=== PATIENT | male | born 1980 | race Caucasian/White ===

== ENCOUNTER 2025-03-04 15:53 | Outpatient (REF) | payer OTHER, MEDICAID, SELFPAY ==
--- OUTSIDE RECORDS SUMMARY | 2025-03-04 15:00 | XMS_ITS | Encounter Summary ---
Author Organization [employer] Address [address] [place] [address] Care Team Providers Care Hazardous Waste Management Specialist Name Role Phone Unavailable Primary Care Provider Unavailabl e Reason for Visit * Reason Comments UTI Encounter Details Date Type Department Care Team (Late st Contact Info) Description 03/04/2025 3:00 PM EST Office Visit [facility] [address] [place] [address] Weight loss (Primary Dx); UTI symptoms; Dietary counseling; Exercise counseling; Overweight; Type 2 diabetes mellitus without complication, without long-term current use of insulin (HCC) Social History Tobacco Use Types Packs/Day Years Used Date Smoking Tobacco: Never Passive Smoke Exposure: Never Smokeless Tobacco: Never Tobacco Cessation:Counseling Given: Not Answered Sex and Gender Information Value Date Recorded Sex Assigned at Male 03/04/2025 2:25 PM EST Legal Sex Male 1:50 PM EST Gender Identity Male 03/04/2025 2:25 PM EST Sexual Orientation Straight 03/04/2025 2: 25 PM EST documented as of this encounter Last Filed Vital Signs Vital Sign Reading Time Taken Comments Blood Pressure 117/77 03/04/2025 3:19 PM EST Pulse 86 03/04/2025 3:19 PM EST Temperature 36.7 C (98.1 F) 03/04/2025 3:19 PM EST Respiratory Rate 16 03/04/2025 3:19 PM EST Oxygen Saturation 100% 03/04/2025 3:19 PM EST Inhaled Oxygen Concentration - - Weight 68 kg (150 lb) 03/04/2025 3:19 PM EST Height 162.6 cm (5' 4 ) 03/04/2025 3:19 PM EST Body Mass Index 25.75 03/04/2025 3:19 PM EST documented in this encounter Plan of Treatment Upcoming Encounters Date Type Department Care Team (Late st Contact Info) Description 04/25/2025 9:30 AM EST Office Visit [facility] [address] [place] [address] Dyana Ware MD [address] [place] [address] Scheduled Orders Name Type Priority Associated Diagnoses Orde r Schedule Hepatitis C Antibody with Reflex to HCV, RNA, Quantitative, Real-Time PCR Lab Routine Weight loss Expected: 03/04/2025, Expires: 03/04/2026 HIV-1/2 Antigen and Antibodies, Fourth Generation, with Reflexes Lab Routine Weight loss Expected: 03/04/2025 (Approximate), Expires: 03/04/2026 RPR (Monitor) with Reflex to Titer Lab Routine Weight loss Expected: 03/04/2025, Expires: 03/04/2026 Hemoglobin A1c Lab Routine Weight loss Expected: 03/04/2025 (Approximate), Expires: 03/04/2026 documented as of this encounter Goals Goal Patient Goal Type Associated Problems Recent Progress Patient-Stated? Author Help patients manage their type 2 diabetes Care Plan Help patients manage their type 2 diabetes Layne Garcia MD Patient has chronic kidney disease Care Plan Patient has chronic kidney disease Layne Garcia MD documented as of this encounter Procedures Procedure Name Priority Date/Time Associated Diagnosis Comments POCT URINALYSIS DIPSTICK Routine 03/04/2025 4:02 PM EST UTI symptoms CBC WITH AUTO DIFFERENTIAL Routine 03/04/2025 4:00 PM EST Weight loss SED RATE BY MODIFIED WESTERGREN Routine 03/04/2025 4:00 PM EST Weight loss C-REACTIVE PROTEIN Routine 03/04/2025 4: 00 PM EST Weight loss LD Routine 03/04/2025 4:00 PM EST Weight loss COMPREHENSIVE METABOLIC PANEL Routine 03/04/2025 4:00 PM EST Weight loss documented in this encounter Results * (ABNORMAL) POCT urinalysis dipstick manually resulted (CPT 39827) (03/04/2025 4:02 PM EST) Color, UA Yellow Clarity, UA Clear Glucose, UA 3+ 500+++ Comment:500mg Bilirubin, UA Negative Ketones, UA Positive Comment:160mg Spec Grav, UA 1.015 Blood, UA Positive(A) Negative, None Detected Comment:trace pH, UA 5.5 Protein, UA Negative Urobilinogen, UA 0.2 Leukocytes, UA Negative Negative, Rare, Trace, 1+ (17), 2+ (35), 3+ (70), Trace (15) Nitrite, UA Negative Negative, None Detected Appearance, UA Ok Urine (Urine, Random) 03/04/2025 4:02 PM EST Layne Langston MD POINT OF CARE TEST ENTER/EDIT ORDERABLES Final Result * Lactate Dehydrogenase (LD) (03/04/2025 4:00 PM EST) Lactate Dehydrogenase 148 118 - 273 U/L [facility] Blood Venous blood specimen / Unknown 03/04/2025 4:00 PM EST 03/04/2025 6:19 PM EST Layne Langston MD LAB BLOOD ORDERABLES Final Res ult Performing Organization Address [facility] Co de Phone Number [facility] [address] [place] [address] [phone] * C-reactive Protein (03/04/2025 4:00 PM EST) C Reactive Protein <0.10 < or = 0.50 mg/dL [facility] Blood Venous blood specimen / Unknown 03/04/2025 4:00 PM EST 03/04/2025 6:19 PM EST Layne Langston MD LAB BLOOD ORDERABLES Final Res ult [facility] [address] [place] [address] [phone] * Sed Rate by Modified Westergren (03/04/2025 4:00 PM EST) Erythrocyte Sedimentation Rate 7 1 - 15 MM/HR [facility] Comment:Patients with polycy themia and many hemoglobin abnormalitiesmay have depressed sed rates whereas patients with anemiamay have elevated sed rates. Blood Venous blood specimen / Unknown 03/04/2025 4:00 PM EST 03/04/2025 6:19 PM EST us Layne Langston MD LAB BLOOD ORDERABLES Final Res ult [facility] [address] [place] [address] [phone] * (ABNORMAL) Comprehensive Metabolic Panel (03/04/2025 4:00 PM EST) Pathologist [facility] Sodium 134(L) 135 - 145 mmol/L [facility] Potassium 4.3 3.3 - 5.1 mmol/L [facility] Chloride 98 96 - 108 mmol/L [facility] Carbon Dioxide 23 22 - 29 mmol/L [facility] Anion Gap 17 12 - 20 [facility] Urea Nitrogen (BUN) 8(L) 9 - 16 mg/dL [facility] Creatinine, Serum 0.66 0.5 - 1.4 mg/dL [facility] Estimated Glomerular Filt Rate >60 [facility] Comment:Chronic Kidney Disea se: Estimated GFR < 60 mL/min/1.84x8Vxsisr Kidney Disease: Estimated GFR < 15 mL/min/1.73m2 Glucose 276(H) 60 - 115 mg/dL [facility] Calcium 9.4 8.4 - 10.2 mg/dL [facility] Bilirubin, Total 0.9 0.0 - 1.0 mg/dL [facility] Aspartate Amino Transferase 76(H) 5 - 37 U/L [facility] Alanine Aminotransferase 133(H) 0 - 40 U/L [facility] Total Protein 7.1 6.5 - 8.0 g/dL [facility] Albumin Level 4.6 3.5 - 5.0 g/dL [facility] Alkaline Phosphatase 146(H) 39 - 117 U/L [facility] Blood Venous blood specimen / Unknown 03/04/2025 4:00 PM EST 03/04/2025 6:19 PM EST us Layne Langston MD LAB BLOOD ORDERABLES Final Res ult [facility] [address] [place] [address] [phone] * (ABNORMAL) CBC auto differential (03/04/2025 4:00 PM EST) White Blood Count 4.9 4.8 - 10.8 X10*3/uL [facility] Red Blood Count 4.70 4.60 - 5.80 X10*6/uL [facility] Hemoglobin 14.7 14.0 - 18.0 g/dl [facility] Hematocrit 41.2(L) 42.0 - 52.0 % [facility] Mean Corpuscular Volume 87.7 80.0 - 98.0 fL [facility] Mean Corpuscular Hemoglobin 31.3 27.0 - 33.0 pg [facility] Mean Corpuscular HGB Conc 35.7 31.0 - 36.0 g/dl [facility] Red Cell Distribution Width 12.2 11.0 - 16.0 % [facility] Platelet Count 143(L) 160 - 400 X10*3/uL [facility] Mean Platelet Volume 11.3 9.4 - 12.4 fL [facility] Neutrophils Percent Auto 71.5 45 - 73 % [facility] Imm Gran Pct Auto 0.4 0.0 - 0.4 % [facility] Lymphocytes Percent Auto 20.6 20 - 40 % [facility] Monocytes Percent Auto 5.7 2 - 11 % [facility] Eosinophils Percent Auto 1.2 0 - 4 % [facility] Basophils Percent Auto 0.6 0 - 2 % [facility] NRBC Pct Auto 0.0 0.0 - 0.2 /100WBC [facility] Neutrophils Absolute Auto 3.5 2.0 - 8.3 x10*3/uL [facility] Imm Gran Abs Auto 0.02 0.00 - 0.03 X10*3/uL [facility] Lymphocytes Absolute Auto 1.0(L) 1.2 - 4.9 X10*3/uL [facility] Monocytes Absolute Auto 0.3 0.1 - 1.2 X10*3/uL [facility] Eosinophils Absolute Auto 0.1 0.0 - 0.4 X10*3/uL [facility] Basophils Absolute Auto 0.0 0.0 - 0.2 X10*3/uL [facility] NRBC Abs Auto 0.000 0.0 - 0.012 X10*3/uL [facility] Blood Venous blood specimen / Unknown 03/04/2025 4:00 PM EST 03/04/2025 6:19 PM EST us Layne Langston MD LAB BLOOD ORDERABLES Final Res ult [facility] [address] [place] [phone] documented in this encounter Visit Diagnoses Diagnosis Weight loss- Primary Loss of weight UTI symptoms Dietary counseling Dietary surveillance and counseling Exercise counseling Overweight Type 2 diabetes mellitus without complication, without long-term current use of insulin (HCC) documented in this encounter Additional Health Concerns Active Problems Noted Date Diagnosed Date Help patients manage their type 2 diabetes 03/04 Patient has chronic kidney disease 03/04/2025 documented as of this encounter
[2025-03-04 18:21] LABS: MANUAL DIFF FLAG NO
[2025-03-04 18:31] LABS: Hematocrit 41.2 % (42.0-52.0); Hemoglobin 14.7 g/dl (14.0-18.0); Imm Gran Abs Auto 0.02 X10*3/uL (0.00-0.03); Imm Gran Pct Auto 0.4 % (0.0-0.4); Lymphocytes Absolute Auto 1.0 X10*3/uL (1.2-4.9); Mean Corpuscular HGB Conc 35.7 g/dl (31.0-36.0); Mean Corpuscular Hemoglobin 31.3 pg (27.0-33.0); Mean Corpuscular Volume 87.7 fL (80.0-98.0); NRBC Abs Auto 0.000 X10*3/uL (0.0-0.012); NRBC Pct Auto 0.0 /100WBC (0.0-0.2); Platelet Count 143 X10*3/uL (160-400); Red Blood Count 4.70 X10*6/uL (4.60-5.80); White Blood Count 4.9 X10*3/uL (4.8-10.8)
[2025-03-04 19:06] LABS: Alanine Aminotransferase 133 U/L (0-40); Albumin Level 4.6 g/dL (3.5-5.0); Alkaline Phosphatase 146 U/L (39-117); Anion Gap 17 (12-20); Aspartate Amino Transferase 76 U/L (5-37); Blood Urea Nitrogen 8 mg/dL (9-16); Calcium 9.4 mg/dL (8.4-10.2); Carbon Dioxide 23 mmol/L (22-29); Chloride 98 mmol/L (96-108); Estimated Glomerular Filt Rate > 60; Potassium 4.3 mmol/L (3.3-5.1); Sodium 134 mmol/L (135-145); Total Protein 7.1 g/dL (6.5-8.0)
--- OUTSIDE RECORDS SUMMARY | 2025-03-04 22:20 | XMS_ITS | Encounter Summary ---
Author Organization [employer] Address [address] [place] [address] Care Team Providers Care Director Agency & Strategic Partnerships Name Role Phone Unavailable Primary Care Provider Unavailabl e Encounter Details Date Type Department Care Team (Latest Contact Info) Description 03/04/2025 Travel Social History Tobacco Use Types Packs/Day Years Used Date Smoking Tobacco: Never Passive Smoke Exposure: Never Smokeless Tobacco: Never Sex and Gender Information Value Date Recorded Sex Assigned at Male 03/04/2025 2:25 PM EST Legal Sex Male 1:50 PM EST Gender Identity Male 03/04/2025 2:25 PM EST Sexual Orientation Straight 03/04/2025 2: 25 PM EST documented as of this encounter Plan of Treatment Upcoming Encounters Date Type Department Care Team (Late st Contact Info) Description 04/25/2025 9:30 AM EST Office Visit [facility] [address] [place] [address] Dyana Ware MD [address] [place] [address] documented as of this encounter Goals Goal Patient Goal Type Associated Problems Recent Progress Patient-Stated? Author Help patients manage their type 2 diabetes Care Plan Help patients manage their type 2 diabetes No Layne Langston MD Patient has chronic kidney disease Care Plan Patient has chronic kidney disease Layne Garcia MD documented as of this encounter Visit Diagnoses Not on filedocumented in this encounter Additional Health Concerns Active Problems Noted Date Diagnosed Date Help patients manage their type 2 diabetes 03/04 Patient has chronic kidney disease 03/04/2025 documented as of this encounter
--- OUTSIDE RECORDS SUMMARY | 2025-03-04 22:20 | XMS_ITS | Clinical Summary ---
Author Organization [employer] Address [address] [place] [address] Care Team Providers Care Territory Account Representative Name Role Phone Unavailable Primary Care Provider Unavailabl e Allergies No known active allergies Medications clotrimazole (Lotrimin) 1 % cream Apply topically 2 times daily for 28 days. 30 g 03/04/2025 5:02 PM EST 5 04/01/19 26 Active metFORMIN (Glucophage) 500 MG tablet Take 1 tablet (500 mg) by mouth with breakfast and with evening meal. 180 tablet 3 03/04/2025 5:02 PM EST 5 03/04/20 26 Active mupirocin (Bactroban) 2 % ointment Apply topically 2 times daily for 10 days. 22 g 03/04/2025 5:02 PM EST 5 03/14/20 25 Active Active Problems Problem Noted Date Diagnosed Date Type 2 diabetes mellitus wit hout complication, without long-term current use of insulin 03/04/2025 Encounters Date Type Department Care Team Description 03/04/2025 3:00 PM EST Office Visit [facility] [address] [facility] [place] [address] Weight loss (Primary Dx); UTI symptoms; Dietary counseling; Exercise counseling; Overweight; Type 2 diabetes mellitus without complication, without long-term current use of insulin ([facility]) 03/04/2025 Travel from Last 3 Months Social History Tobacco Use Types Packs/Day Years Used Date Smoking Tobacco: Never Passive Smoke Exposure: Never Smokeless Tobacco: Never Tobacco Cessation:Counseling Given: Not Answered Sex and Gender Information Value Date Recorded Sex Assigned at Male 03/04/2025 2:25 PM EST Legal Sex Male 1:50 PM EST Gender Identity Male 03/04/2025 2:25 PM EST Sexual Orientation Straight 03/04/2025 2: 25 PM EST Last Filed Vital Signs Vital Sign Reading [...] Mass Index 25.75 03/04/2025 3:19 PM EST Plan of Treatment Upcoming Encounters Date Type Department Care Team (Late st Contact Info) Description 04/25/2025 9:30 AM EST Office Visit [facility] [address] [place], [place] [phone] Dyana Ware MD [address] [place] [address] Health Maintenance Due Date Last Done Comments Depression Screening 1981 Diabetes: Hemoglobin A1C 1981 HIV Screening 1981 Lipid Panel 1981 SDOH Screening 1981 Disability Screening 1981 Diabetes: Foot Exam 08/31/1991 Eye Exam 08/31/1991 Alcohol/Substance Use Screening 1993 Family Planning (PISQ) 1996 HPV Vaccines (1 - Male 3-dos e series) 1996 Hepatitis C Screening 08/31/1999 DTaP/Tdap/Td Vaccines (1 - Tdap) 2000 Diabetes: Urine Protein Screening 2000 Hepatitis B Vaccines (1 of 3 - 19+ 3-dose series) 2000 Pneumococcal Vaccine: Pediat rics (0 to 5 Years) and At-Risk Patients (6 to 49) Years (1 of 2 - PCV) 2000 COVID-19 Vaccine (1 - 2024-2 6 season) 2024 Influenza Vaccine (#1) 2024 Tobacco Screening 03/04/2026 03/04/2025 Zoster Vaccines (1 of 2) 08/31/2031 RSV Patients and Pa tients Aged 60 years or older (1 - 1-dose 75+ series) 2056 HIB Vaccines Aged Out No longer eligi ble based on patient's age to complete this topic Hepatitis A Vaccines Aged Out No long er eligible based on patient's age to complete this topic IPV Vaccines Aged Out No longer eligi ble based on patient's age to complete this topic Meningococcal B Vaccine Aged Out No l onger eligible based on patient's age to complete this topic Meningococcal Vaccine Aged Out No jennifer benjy eligible based on patient's age to complete this topic RSV under 20 months Aged Out No longe r eligible based on patient's age to complete this topic Rotavirus Vaccines Aged Out No longer eligible based on patient's age to complete this topic Goals Goal Patient Goal Type Associated Problems Recent Progress Patient-Stated? Author Help patients manage their type 2 diabetes Care Plan Help patients manage their type 2 diabetes Layne Garcia MD Patient has chronic kidney disease Care Plan Patient has chronic kidney disease Layne Garcia MD Procedures Procedure Name Priority Date/Time Associated Diagnosis Comments POCT URINALYSIS DIPSTICK Routine 03/04/2025 4:02 PM EST UTI symptoms LD Routine 03/04/2025 4:00 PM EST Weight loss C-REACTIVE PROTEIN Routine 03/04/2025 4: 00 PM EST Weight loss SED RATE BY MODIFIED WESTERGREN Routine 03/04/2025 4:00 PM EST Weight loss COMPREHENSIVE METABOLIC PANEL Routine 03/04/2025 4:00 PM EST Weight loss CBC WITH AUTO DIFFERENTIAL Routine 03/04/2025 4:00 PM EST Weight loss from Last 3 Months Results * (ABNORMAL) POCT urinalysis dipstick manually resulted (CPT 63907) (03/04/2025 4:02 PM EST) Color, UA Yellow [...] CARE TEST ENTER/EDIT ORDERABLES Final Result * (ABNORMAL) CBC auto differential (03/04/2025 4:00 PM EST) White Blood Count 4.9 4.8 - 10.8 X10*3/uL [facility] Red Blood Count 4.70 4.60 - 5.80 X10*6/uL [facility] Hemoglobin 14.7 14.0 - 18.0 g/dl [facility] Hematocrit 41.2(L) 42.0 - 52.0 % [facility] Mean Corpuscular Volume 87.7 80.0 - 98.0 fL [facility] Mean Corpuscular Hemoglobin 31.3 27.0 - 33.0 pg [facility] Mean Corpuscular HGB Conc 35.7 31.0 - 36.0 g/dl [facility] Red Cell Distribution Width 12.2 11.0 - 16.0 % [facility] Platelet Count 143(L) 160 - 400 X10*3/uL [facility] Mean Platelet Volume 11.3 9.4 - 12.4 fL [facility] Neutrophils Percent Auto 71.5 45 - 73 % [facility] Imm Gran Pct Auto 0.4 0.0 - 0.4 % [facility] Lymphocytes Percent Auto 20.6 20 - 40 % [facility] Monocytes Percent Auto 5.7 2 - 11 % [facility] Eosinophils Percent Auto 1.2 0 - 4 % [facility] Basophils Percent Auto 0.6 0 - 2 % [facility] NRBC Pct Auto 0.0 0.0 - 0.2 /100WBC [facility] Neutrophils Absolute Auto 3.5 2.0 - 8.3 x10*3/uL [facility] Imm Gran Abs Auto 0.02 0.00 - 0.03 X10*3/uL [facility] Lymphocytes Absolute Auto 1.0(L) 1.2 - 4.9 X10*3/uL [facility] Monocytes Absolute Auto 0.3 0.1 - 1.2 X10*3/uL [facility] Eosinophils Absolute Auto 0.1 0.0 - 0.4 X10*3/uL [facility] Basophils Absolute Auto 0.0 0.0 - 0.2 X10*3/uL [facility] NRBC Abs Auto 0.000 0.0 - 0.012 X10*3/uL [facility] Blood Venous blood specimen / Unknown 03/04/2025 4:00 PM EST 03/04/2025 6:19 PM EST Layne Langston MD LAB BLOOD ORDERABLES Final Res ult Performing Organization Address [facility] Co de Phone Number [facility] [address] [place] [phone] * Sed Rate by Modified Nellaren (03/04/2025 4:00 PM EST) Erythrocyte Sedimentation Rate 7 1 - 15 MM/HR [facility] Comment:Patients with polycy themia and many hemoglobin abnormalitiesmay have depressed sed rates whereas patients with anemiamay have elevated sed rates. Blood Venous blood specimen / Unknown 03/04/2025 4:00 PM EST 03/04/2025 6:19 PM EST Layne Langston MD LAB BLOOD ORDERABLES Final Res ult Performing Organization Address City/[facility]/ZIP Co de Phone Number [facility] [address] [place] [phone] * C-reactive Protein (03/04/2025 4:00 PM EST) Pathologist [facility] C Reactive Protein <0.10 < or = 0.50 mg/dL [facility] Blood Venous blood specimen / Unknown 03/04/2025 4:00 PM EST 03/04/2025 6:19 PM EST Layne Langston MD LAB BLOOD ORDERABLES Final Res ult Performing Organization Address City/[facility]/ZIP Co de Phone Number [facility] [address] [place] [phone] * Lactate Dehydrogenase (LD) (03/04/2025 4:00 PM EST) [facility] Lactate Dehydrogenase 148 118 - 273 U/L [facility] Blood Venous blood specimen / Unknown 03/04/2025 4:00 PM EST 03/04/2025 6:19 PM EST Layne Langston MD LAB BLOOD ORDERABLES Final Res ult Performing Organization Address City/[facility]/ZIP Co de Phone Number [facility] [address] [place] [phone] * (ABNORMAL) Comprehensive Metabolic Panel (03/04/2025 4:00 PM EST) Pathologist [facility] Sodium 134(L) 135 - 145 mmol/L [facility] Potassium 4.3 3.3 - 5.1 mmol/L [facility] Chloride 98 96 - 108 mmol/L [facility] Carbon Dioxide 23 22 - 29 mmol/L [facility] Anion Gap 17 12 - 20 [facility] Urea Nitrogen (BUN) 8(L) 9 - 16 mg/dL [facility] Creatinine, Serum 0.66 0.5 - 1.4 mg/dL [facility] Estimated Glomerular Filt Rate >60 [facility] Comment:Chronic Kidney Disea se: Estimated GFR < 60 mL/min/1.56e1Goolsl Kidney Disease: Estimated GFR < 15 mL/min/1.73m2 Glucose 276(H) 60 - 115 mg/dL [facility] Calcium 9.4 8.4 - 10.2 mg/dL [facility] Bilirubin, Total 0.9 0.0 - 1.0 mg/dL [facility] Aspartate Amino Transferase 76(H) 5 - 37 U/L [facility] Alanine Aminotransferase 133(H) 0 - 40 U/L [facility] Total Protein 7.1 6.5 - 8.0 g/dL [facility] Albumin Level 4.6 3.5 - 5.0 g/dL [facility] Alkaline Phosphatase 146(H) 39 - 117 U/L [facility] Blood Venous blood specimen / Unknown 03/04/2025 4:00 PM EST 03/04/2025 6:19 PM EST us Layne Langston MD LAB BLOOD ORDERABLES Final Res ult [facility] [address] [place], [place] [phone] from Last 3 Months Additional Health Concerns Active Problems Noted Date Diagnosed Date Help patients manage their type 2 diabetes 03/04 Patient has chronic kidney disease 03/04/2025 Insurance [employer] HSN FULL
[2025-03-05 04:57] LABS: HIV Num 1 0.07 S/CO (0.00-0.99); ~HepC Num1 0.13 S/CO (0.00-0.79); ~Hepatitis C Antibody Nonreactive (Nonreactive)
== END 2025-03-04 15:54 | disposition home or self-care (01) ==
LOC: HO.HHCL 15:53
PROVIDERS: PCP General Practice; Visit Provider General Practice
DX: R63.4 Abnormal weight loss (principal); Z13.1 Encounter for screening for diabetes mellitus
CPT/HCPCS: 36415; 80053; 83036; 83615; 85025; 85652; 86140; 86592; 86803; 87389